=== PATIENT | male | born 1975 | race Caucasian/White ===

== ENCOUNTER 2016-11-16 22:55 | Emergency (ER) | payer SELFPAY ==
[~2016-11-16 22:55] MED LIST: BACT800T5 PO; BUSP5TAB3 PO; CLIN150 PO; LEXA20TA PO; TRAZ100 PO; UNKNOWN HTN MED PO; [UNRECOGNIZED DRUG - REMARK] PO
[2016-11-16 22:56] VITALS: BP 144/90; PULSE 124; RESP 16; TEMP 98.5; O2SAT 96
== END 2016-11-17 00:15 | disposition left against medical advice (07) ==
LOC: NED 22:55
DX: F99 Mental disorder, not otherwise specified (principal)
CPT/HCPCS: 99281

== ENCOUNTER 2016-11-17 04:49 | Emergency (ER) | payer SELFPAY ==
[~2016-11-17] VITALS: Ht 180.3 cm; Wt 63.5 kg
[2016-11-17 04:52] VITALS: BP 132/87; PULSE 122; RESP 18; TEMP 98.3; O2SAT 98
--- NOTE | 2016-11-17 05:20 | PD ---
HPI Chief Complaint: Psychiatric Symptoms Time Seen by Provider: 05:00 Travel History International Travel<30 days: No Contact w/Intl Traveler<30days: No Traveled to known affect area: No History of Present Illness HPI 41-year-old male presents voluntarily for psychiatric evaluation. He reports over the past 4-5 days he's been feeling increasingly depressed, suicidal. Specifically he has plans of hanging himself with a rope. Symptoms have worsened which prompted evaluation. He endorses alcohol use, homelessness. Denies any medical issues at this time. He reports that he sees a psychiatrist at [facility] and as prescribed BuSpar, Lexapro, trazodone and he has been using his medications as prescribed. [facility] Past Medical History Hx Anticoagulant Therapy: No Anxiety: Yes Depression: Yes Cardiovascular Problems: No Chemotherapy: No Cerebrovascular Accident: No Diabetes: No Diminished Hearing: No Gastrointestinal Disorders: Yes (ULCERS) Headaches: Yes Hypertension: Yes Psychiatric: Yes Respiratory: No Immunizations Current: Yes Migraines: Yes Seizures: Yes (alcohol withdrawel) Past Surgical History Other Surgery: Yes (MINOR SURGERY-LAC REPAIR TO LEFT FOOT) Social History Alcohol Use: Yes (DAILY-3L VODKA, 3-4 LOCOS, BEER) Tobacco Use: Yes (1PPD) Substance Use: Yes (DILAUDID IV-LAST USED 11/15/16) Allergies-Medications (Allergen,Severity, Reaction): Coded Allergies: No Known Allergies (Verified , 11/17/16) Reported Meds & Prescriptions Reported Meds & Active Scripts Active Review of Systems Except as stated in HPI: all other systems reviewed are Neg Physical Exam Narrative GENERAL: Well-developed well-nourished male in no acute distress. SKIN: Warm and dry. HEAD: Atraumatic. Normocephalic. EYES: Pupils equal and round. No scleral icterus. No injection or drainage. ENT: No nasal bleeding or discharge. Mucous membranes pink and moist. NECK: Trachea midline. No JVD. CARDIOVASCULAR: Regular rate and rhythm. No murmur appreciated. RESPIRATORY: No accessory muscle use. Clear to auscultation. Breath sounds equal bilaterally. GASTROINTESTINAL: Abdomen soft, non-tender, nondistended. MUSCULOSKELETAL: No obvious deformities. NEUROLOGICAL: Awake and alert. No obvious cranial nerve deficits. Motor grossly within normal limits. Normal speech. PSYCHIATRIC: Appropriate mood and affect; insight and judgment normal. Data Data Last Documented VS Vital Signs Date Time Temp Pulse Resp B/P Pulse Ox O2 Delivery O2 Flow Rate FiO2 11/17/16 09:00 98.0 98 18 120/72 100 Room Air Orders Complete Blood Count With Diff (11/17/16 05:04) Comprehensive Metabolic Panel (11/17/16 05:04) Drug Screen, Random Urine (11/17/16 05:04) Alcohol (Ethanol) (11/17/16 05:04) Salicylates (Aspirin) (11/17/16 05:04) Tylenol (Acetaminophen) (11/17/16 05:04) Psych Screen (11/17/16 05:04) Potassium Chloride (Kcl) (11/17/16 07:30) Labs Laboratory Tests Test 11/17/16 05:35 White Blood Count 5.0 TH/MM3 Red Blood Count 5.24 MIL/MM3 Hemoglobin 15.1 GM/DL Hematocrit 44.1 % Mean Corpuscular Volume 84.2 FL Mean Corpuscular Hemoglobin 28.8 PG Mean Corpuscular Hemoglobin 34.2 % Concent Red Cell Distribution Width 15.6 % Platelet Count 247 TH/MM3 Mean Platelet Volume 6.8 FL Neutrophils (%) (Auto) 62.7 % Lymphocytes (%) (Auto) 28.5 % Monocytes (%) (Auto) 6.4 % Eosinophils (%) (Auto) 0.4 % Basophils (%) (Auto) 2.0 % Neutrophils # (Auto) 3.1 TH/MM3 Lymphocytes # (Auto) 1.4 TH/MM3 Monocytes # (Auto) 0.3 TH/MM3 Eosinophils # (Auto) 0.0 TH/MM3 Basophils # (Auto) 0.1 TH/MM3 CBC Comment DIFF FINAL Differential Comment Sodium Level 143 MEQ/L Potassium Level 3.2 MEQ/L Chloride Level 101 MEQ/L Carbon Dioxide Level 30.6 MEQ/L Anion Gap 11 MEQ/L Blood Urea Nitrogen 11 MG/DL Creatinine 0.72 MG/DL Estimat Glomerular Filtration 121 ML/MIN Rate Random Glucose 116 MG/DL Calcium Level 8.0 MG/DL Total Bilirubin 0.3 MG/DL Aspartate Amino Transf 61 U/L (AST/SGOT) Alanine Aminotransferase 82 U/L (ALT/SGPT) Alkaline Phosphatase 97 U/L Total Protein 7.2 GM/DL Albumin 3.3 GM/DL Salicylates Level LESS THAN 1.7 MG/DL Urine Opiates Screen NEG Acetaminophen Level LESS THAN 2.0 MCG/ML Urine Barbiturates Screen NEG Urine Amphetamines Screen NEG Urine Benzodiazepines Screen NEG Urine Cocaine Screen NEG Urine Cannabinoids Screen POS Ethyl Alcohol Level 284 MG/DL MDM Medical Decision Making Medical Screen Exam Complete: Yes Emergency Medical Condition: Yes Medical Record Reviewed: Yes Interpretation(s) CBC unremarkable CMP potassium 3.2, AST 61, ALT 82, calcium 8.0 Toxicology positive for cannabinoids Alcohol level 284 Differential Diagnosis Homelessness, malingering, major depressive disorder, depressive disorder not otherwise specified, acute psychosis, substance induced mood disorder Narrative Course 41-year-old male with history of depression, homelessness, alcohol abuse presents with increasing depression and suicidal thoughts for the past 4-5 days. Mental health screening discussed with the patient. Psychiatric screen ordered. The patient is medically cleared for psychiatric disposition. Nitesh Velasco Nov 17, 2016 05:20
[2016-11-17 05:57] LABS: AMPHETAMINE, URINE NEG (NEG); BARBITURATES, URINE NEG (NEG); COCAINE, URINE NEG (NEG)
[2016-11-17 06:07] LABS: AUTOMATED NEUTROPHIL # 3.1 TH/MM3 (1.8-7.7); BASOPHIL # 0.1 TH/MM3 (0-0.2); EOSINOPHIL % 0.4 % (0.0-4.0); HEMATOCRIT 44.1 % (39.0-51.0); HEMO FLAGS DIFF FINAL; LYMPH % 28.5 % (9.0-44.0); LYMPHOCYTE # 1.4 TH/MM3 (1.0-4.8); MEAN CELL VOLUME 84.2 FL (80.0-100.0); MEAN CORPUSCULAR HEMOGLOBIN 28.8 PG (27.0-34.0); MEAN CORPUSCULAR HGB CONC 34.2 % (32.0-36.0); MONO % 6.4 % (0.0-8.0); NEUT % 62.7 % (16.0-70.0); PLATELET COUNT 247 TH/MM3 (150-450); RED BLOOD COUNT 5.24 MIL/MM3 (4.50-5.90); RED CELL DISTRIBUTION WIDTH 15.6 % (11.6-17.2)
[2016-11-17 06:14] LABS: ANION GAP 11 MEQ/L (5-15)
[2016-11-17 06:18] LABS: ACETAMINOPHEN LESS THAN 2.0 MCG/ML (10.0-30.0); ALKALINE PHOSPHATASE 97 U/L (45-117); ALT (GPT) 82 U/L (12-78); AST (GOT) 61 U/L (15-37); BICARBONATE 30.6 MEQ/L (21.0-32.0); BLOOD UREA NITROGEN 11 MG/DL (7-18); CHLORIDE 101 MEQ/L (98-107); GLOMERULAR FILTRATION RATE 121 ML/MIN (>89); POTASSIUM 3.2 MEQ/L (3.5-5.1); SODIUM (NA) 143 MEQ/L (136-145); TOTAL BILIRUBIN ADULT 0.3 MG/DL (0.2-1.0)
[2016-11-17] MEDS ORDERED: POTASSIUM CHLORIDE 20 MEQ CONTROLLED RELEASE TAB PO ONE (07:30)
[2016-11-17 09:00] VITALS: BP 120/72; PULSE 98; RESP 18; TEMP 98; O2SAT 100
== END 2016-11-17 12:20 | disposition home or self-care (01) ==
LOC: NEPA 04:49
DX: R45.851 Suicidal ideations (principal); F32.9 Major depressive disorder, single episode, unspecified; F10.10 Alcohol abuse, uncomplicated; Z59.0 Homelessness
CPT/HCPCS: 80053; 80307; 80320; 80329; 85025; 99283; G0480

== ENCOUNTER 2018-04-05 17:02 | Emergency (ER) | payer SELFPAY ==
[~2018-04-05] VITALS: Ht 180.3 cm; Wt 67.0 kg
[2018-04-05 17:14] VITALS: BP 133/81; PULSE 103; RESP 16; TEMP 98.8; O2SAT 95
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
== END 2018-04-05 19:46 | disposition home or self-care (01) ==
LOC: NEPC 17:02
DX: S00.81XA Abrasion of other part of head, initial encounter (principal); S51.002A Unspecified open wound of left elbow, initial encounter; Y08.09XA Assault by strike by other specified type of sport equipment, initial encounter
CPT/HCPCS: 70450; 70486; 72125